=== PATIENT | male | born 1955 | race Caucasian/White ===

== ENCOUNTER 2016-06-06 15:24 | Inpatient (IN) | payer BC ==
[~2016-06-06] VITALS: Ht 175.3 cm; Wt 83.6 kg
[2016-06-11] MEDS ORDERED: CIAL5TAB PO (11:56)
[2016-06-11] MEDS ORDERED: ASPI1TAB69 PO (11:56)
[2016-06-11] MEDS ORDERED: OXYC1TAB36 PO (11:56)
[2016-06-11] MEDS ORDERED: ALPR1TAB3 PO (12:16)
[2016-07-02] MEDS ORDERED: INSULIN HUMAN REGULAR 1,000 UNITS/10 ML VIAL SQ PRN (08:15)
[2016-07-02] MEDS ORDERED: LACTATED RINGER'S 1000 ML IV PRN (08:15)
[2016-07-02] MEDS ORDERED: CHLORHEXIDINE GLUCONATE 2 % 1 PACK (2 CLOTHS) TOPICAL PRN (08:15)
[2016-07-02] MEDS ORDERED: SODIUM CHLORID 0.9% 500 ML IV PRN (08:15)
[2016-07-02] MEDS ORDERED: METOPROLOL TARTRATE 25 MG TAB PO PRN (08:15)
[2016-07-02] MEDS ORDERED: POVIDONE IODINE 7.5% SCRUB 118 ML BOTTLE TOPICAL SCH (08:15)
[2016-07-02] MEDS ORDERED: ceFAZolin 2 GM PREMIX 50 ML IV SCH (08:15)
[2016-07-02] MEDS ORDERED: POVIDONE IODINE 5% (ANTISEPSIS KIT) 4 APPLICATIONS EACH NARE PRN (08:15)
[2016-07-02 08:26] VITALS: BP 108/53; PULSE 72; RESP 20; TEMP 98.2; O2SAT 96
[2016-07-02] MEDS ORDERED: TRANEXAMIC ACID IV SCH ×2 (08:30→11:30)
[2016-07-02] MEDS ORDERED: SODIUM CHLORIDE 0.9% IV SCH ×2 (08:30→11:30)
[2016-07-02] MEDS ORDERED: EXPAREL PERI-ARTICULAR INJECTION (TOTAL VOL. 100 ML) P-ARTICULR SCH ×2 (08:30)
[2016-07-02] MEDS ORDERED: GENTAMICIN SULFATE 80 MG/2 ML VIAL ONE (09:48)
[2016-07-02] MEDS ORDERED: MIDAZOLAM HCL 2 MG/2 ML VIAL ONE ×2 (10:16→15:12)
[2016-07-02] MEDS ORDERED: FAMOTIDINE 20 MG/2 ML VIAL ONE (10:17)
[2016-07-02] MEDS ORDERED: SODIUM CHLORIDE 0.9% FLUSH 5 ML FLUSH IVF PRN (10:45)
[2016-07-02] MEDS ORDERED: ZOLPIDEM TARTRATE 5 MG TAB PO PRN (10:45)
[2016-07-02] MEDS ORDERED: TRANEXAMIC ACID INJ 0 MG in SODIUM CHLORIDE 0.9% INJ 100 ML IV SCH (10:45)
[2016-07-02] MEDS ORDERED: MORPHINE SULFATE 4 MG/ML INJ IV PUSH PRN (10:45)
[2016-07-02] MEDS ORDERED: MAGNESIUM HYDROXIDE SUSP 30 ML CUP PO PRN (10:45)
[2016-07-02] MEDS ORDERED: ACETAMINOPHEN/HYDROcodone 325 MG/7.5 MG TAB PO PRN ×2 (10:45)
[2016-07-02] MEDS ORDERED: ONDANSETRON HCL 4 MG/2 ML VIAL IVP PRN (10:45)
[2016-07-02] MEDS ORDERED: Post-op Orders (for Pharmacy) MISC XX ONE (10:45)
--- NOTE | 2016-07-02 10:53 | HHI.FF ---
Face to Face Verification Diagnosis: (1) Status post total left knee replacement Physical Therapy Gait training Knee: Total knee, Protocol: Left, Gait training, Full weight bearing Left LE Weight Bearing: WB as tolerated Left LE Range of Motion: Active ROM Additional Instructions AROM, AAROM, PROM, PRE. ROM goal 0 to 135 degrees. ROM in the OR was 0 to 140 degrees. Nursing Nursing: Dressing changes Dressing Changes: Daily dressing change, Coverderm/Primapore Additional Instructions Remove steristrips on postop day 14. I have seen patient Andrez Hogue on 07/02/16. My clinical findings support the need for the requested home health care services because: Ltd mobility - disease progression Limited ability to care for self High risk of falls I certify that my clinical findings support that this patient is homebound because: Post-op weakness Unsteady gait/balance Unsafe to leave home unassisted Russell Solis MD (Charles) Jul 02, 2016 10:52
[2016-07-02] MEDS ORDERED: ACETAMINOPHEN 1000 MG/100 ML VIAL IV ONE (10:57)
[2016-07-02] MEDS ORDERED: KETAMINE HCL 500 MG/5 ML VIAL ONE (11:46)
[2016-07-02] MEDS ORDERED: LACTATED RINGER'S 1000 ML INJ 2,000 ML IV ONE (13:52)
[2016-07-02] MEDS ORDERED: PROPOFOL 200 MG/20 ML AMP IV ONE (13:52)
[2016-07-02] MEDS ORDERED: fentaNYL CITRATE 250 MCG/5 ML AMP ONE (15:12)
[2016-07-02] MEDS ORDERED: ceFAZolin INJ 1,000 MG VIAL IV ONE (15:40)
[2016-07-02] MEDS ORDERED: *morphine SULFATE 8 MG/ML PERIprocedure ONLY ONE ×3 (16:14→16:53)
[2016-07-02] MEDS: KETOROLAC TROMETHAMINE 30 MG/ML (IVP) VIAL IVP SCH ×3 (16:30→22:30)
[2016-07-02] MEDS ORDERED: DO NOT ADM ANY ANTICOAGULANT DRUGS PRN (17:15)
[2016-07-02] MEDS: LACTATED RINGER'S 1000 ML INJ 1,000 ML IV SCH ×2 (17:28→22:31)
[2016-07-02] MEDS ORDERED: *HYDROmorphone PF 1 MG VIAL PERIprocedural Use ONLY ONE ×2 (17:47→18:34)
--- NOTE | 2016-07-02 18:24 | RADRPT ---
EXAM DATE/TIME: 07/02/2016 17:54 [place] COMPARISON: No previous studies available for comparison. INDICATIONS : Post op left knee. MEDICAL HISTORY : None. SURGICAL HISTORY : None. ENCOUNTER: Initial ACUITY: 1 day PAIN SCORE: Non-responsive. LOCATION: Left knee FINDINGS: Frontal and lateral views of the left knee demonstrate surgical drain, soft tissue swelling and subcu taneous emphysema about the knee. Patient is status post left total knee arthroplasty. Tibial and fem oral components and patellar components appear well seated. A threaded screw traverses the distal tib ia. CONCLUSION: Postoperative changes. Shahzad Hernandez MD on July 02, 2016 at 18:22 Board Certified Radiologist. This report was verified electronically.
[2016-07-02 19:30] VITALS: BP 142/85; PULSE 81; RESP 18; TEMP 98.4; O2SAT 98
[2016-07-02] MEDS: SODIUM CHLORIDE 0.9% FLUSH 5 ML FLUSH IVF SCH (21:10)
[2016-07-02] MEDS: ALPRAZolam 1 MG TAB PO PRN (21:10)
[2016-07-02] MEDS: oxyCODONE/ACETAMINOPHEN 10 MG/325 MG TAB PO PRN (21:11)
[2016-07-02] MEDS: ASPIRIN EC 81 MG TABEC PO SCH (21:11)
[2016-07-02 21:28] VITALS: O2SAT 94
[2016-07-02 21:40] VITALS: O2SAT 94
[2016-07-03] VITALS: BP 137/76; PULSE 83; RESP 17; TEMP 98.9; O2SAT 96
[2016-07-03] MEDS: oxyCODONE/ACETAMINOPHEN 10 MG/325 MG TAB PO PRN ×3 (01:44→09:52)
[2016-07-03] MEDS: ALPRAZolam 1 MG TAB PO PRN (03:13)
[2016-07-03 04:00] VITALS: BP 141/74; PULSE 81; RESP 17; TEMP 98.6; O2SAT 94
[2016-07-03] MEDS: KETOROLAC TROMETHAMINE 30 MG/ML (IVP) VIAL IVP SCH (05:53)
--- NOTE | 2016-07-03 06:13 | PD.ORT.PN ---
Subjective Post Op Day #: 1 Subjective Remarks He has been OOB walking to the bathroom without difficulty. He reports little pain. He is anxious to return home. Range of Motion -15 to 85 degrees. Distance Walked 10 sidesteps. Objective Vitals Vital Signs Date Time Temp Pulse Resp B/P Pulse Ox O2 Delivery O2 Flow Rate FiO2 07/03/16 04:00 98.6 81 17 141/74 94 07/03/16 04:00 Room Air 07/03/16 00:00 Room Air 07/03/16 00:00 98.9 83 17 137/76 96 07/02/16 21:40 94 21 07/02/16 21:28 94 21 07/02/16 20:26 96 Room Air 07/02/16 20:25 Nasal Cannula 2.00 07/02/16 19:30 98.4 81 18 142/85 98 07/02/16 18:30 98.2 85 16 150/82 94 Nasal Cannula 2 07/02/16 18:00 85 16 157/85 94 Nasal Cannula 2 07/02/16 17:30 88 16 158/94 94 Nasal Cannula 3 07/02/16 17:30 15 07/02/16 17:15 83 16 147/92 94 Nasal Cannula 3 07/02/16 17:00 77 16 156/87 94 Nasal Cannula 3 07/02/16 16:45 76 15 158/93 97 Nasal Cannula 3 07/02/16 16:30 76 15 163/90 97 Nasal Cannula 3 07/02/16 16:15 82 14 177/95 97 Nasal Cannula 3 07/02/16 16:08 98.5 86 15 154/101 97 Nasal Cannula 3 07/02/16 08:26 98.2 72 20 108/53 96 I/O 07/02/16 07/02/16 07/02/16 07/03/16 07/03/16 07/03/16 07:00 15:00 23:00 07:00 15:00 23:00 Intake Total 2721 ml 794 ml Output Total 1095 ml 200 ml Balance 1626 ml 594 ml Intake Oral 240 ml IV Total 481 ml 794 ml Other 2000 ml Output Urine Total 475 ml Drainage Total 170 ml 200 ml Estimated Blood Loss 450 ml # Voids 1 # Bowel Movements 0 Imaging Last 24 hours Impressions Knee X-Ray 07/02/16 1034 Signed Impressions: Service Date/Time: Saturday, July 02, 2016 17:54 - CONCLUSION: Postoperative changes. Shahzad Hernandez MD Objective Remarks He is resting comfortably, supine in bed in the CPM. The dressing is dry and intact. the neurovascular status is intact. Assessment & Plan Ortho Post Op Day #: 1 Problem List: (1) Status post total left knee replacement Plan: Continue postop care and PT. Assessment and Plan Condition: Good. Orthopaedically stable. DVT prophylaxis: TEDs, sequentials, ASA. Discharge plans: Home with [facility]. Rx: Percocet 5/325. Russell Solis MD (Charles) Jul 03, 2016 06:13
[2016-07-03 06:25] LABS: HEMATOCRIT 34.1 % (39.0-51.0); MEAN CELL VOLUME 88.8 FL (80.0-100.0); MEAN CORPUSCULAR HEMOGLOBIN 30.6 PG (27.0-34.0); MEAN CORPUSCULAR HGB CONC 34.5 % (32.0-36.0); PLATELET COUNT 197 TH/MM3 (150-450); RED BLOOD COUNT 3.84 MIL/MM3 (4.50-5.90); RED CELL DISTRIBUTION WIDTH 13.1 % (11.6-17.2); REVIEW FLAG FINAL; WHITE BLOOD COUNT 11.4 TH/MM3 (4.0-11.0)
[2016-07-03] MEDS ORDERED: OXYC1TAB36 PO (06:38)
[2016-07-03 06:42] LABS: BICARBONATE 29.4 MEQ/L (21.0-32.0)
[2016-07-03 07:56] VITALS: O2SAT 97
[2016-07-03 08:00] VITALS: BP 130/79; PULSE 80; RESP 16; TEMP 97.3; O2SAT 96
--- NOTE | 2016-07-03 08:34 | MB ---
cc: WALTER MONTEJO MD DATE OF CONSULTATION 07/02/2016 DATE OF 1955 DATE OF ADMISSION 07/02/2016 REASON FOR CONSULTATION Medical management. The patient is status post left total knee replacement. HISTORY OF PRESENT ILLNESS This is a pleasant 61-year-old white male who has struggled with osteoarthritis and chronic pain in his left knee. He had already had one left knee replacement done and is back for his second one after failing outpatient treatment. The patient is currently in the PACU status post his surgery. He is alert and oriented and a fairly good historian. His fiance is by his side. PAST MEDICAL HISTORY Includes: 1. Osteoarthritis 2. Chronic pain 3. [place] 4. Cardiovascular disease 5. Valvular scarring 6. Anxiety PAST SURGICAL HISTORY 1. Previous left total knee replacement as stated this is his second one. 2. Right hand surgery 3. Prostate surgery 4. Seminal vesicle surgery 5. Back surgery ALLERGIES No known medications. MEDICATIONS 1. P.r.n. antianxiety meds 2. Pain meds 3. Cialis SOCIAL HISTORY The patient is single, engaged, fixing to very same. He lives with his significant other. The patient is a former smoker, quit 10 years ago. He does admit to some marijuana use. Rare social alcohol. REVIEW OF SYSTEMS Positive for chronic pain, osteoarthritis, history of [place] and valvular scarring. Other systems negative or unremarkable. PHYSICAL EXAM VITAL SIGNS: Temperature is 98.2, pulse 88, respirations 16, blood pressure 158/94, O2 sat 94 on three liters nasal cannula. GENERAL: A well-nourished white male who looks to be his stated age resting on a stretcher, answering simple questions, alert and oriented. SKIN: [place], warm and dry. HEENT: Atraumatic, normocephalic. BRANDON at 3. Mucous membranes are slightly dry. Tongue is midline. NECK: Supple. CARDIOVASCULAR: S1-S2. No audible murmurs, rubs or gallops. No edema in his lower extremities. PULMONARY: Essentially clear anteriorly and posteriorly with no wheezes, rales or rhonchi. ABDOMEN: Flat, soft, nontender, nondistended. MUSCULOSKELETAL: Moves all of his extremities with purpose. He has limited movement secondary to his current knee surgery, but he can move his toes and overcomes resistance with his upper extremities. NEUROLOGIC: Awake, alert, oriented. PSYCHOLOGIC: Appropriate mood and affect. Knee x-ray shows postoperative changes and no other labs. ASSESSMENT/PLAN 1. Osteoarthritis, the patient is status post left total knee Replacement. 2. Chronic pain secondary to number one. 3. History of anxiety disorder. 4. History of [place]. 5. History of tobacco use, none now, current marijuana use. Our plan is to monitor any medical issues he has. The patient is not a known diabetic. We will draw labs in the morning and monitor any medical comorbidities as needed. Ortho will manage postop care and pain management. Thank you very much for this consult and we are glad to assist. Dictated by BARRY Manrique MD JAJA Gunderson/ABDIRAHMAN /6:32 PM /8:33 AM PT WAS SEEN & EXAMINED YESTERDAY d/w Ilana truong above post op DVT care per ortho will f/u MTDD
[2016-07-03] MEDS ORDERED: CIALIS 5 MG PO SCH (09:00)
[2016-07-03] MEDS: SODIUM CHLORIDE 0.9% FLUSH 5 ML FLUSH IVF SCH (09:00)
[2016-07-03] MEDS ORDERED: NON-FORMULARY DRUG (Tadalafil (Cialis) 5 MG) PO SCH (09:00)
[2016-07-03] MEDS: ASPIRIN EC 81 MG TABEC PO SCH (09:51)
[2016-07-03] MEDS ORDERED: DOCUSATE SODIUM 100 MG CAP PO SCH (21:00)
--- NOTE | 2016-07-03 22:33 | MP ---
cc: Leeroy SALES. DATE OF SURGERY: 07/02/2016 PREOPERATIVE DIAGNOSIS: Prior anterior cruciate ligament reconstruction with post traumatic arthritis. POSTOPERATIVE DIAGNOSIS: Prior anterior cruciate ligament reconstruction with retained hardware, extensive fibrosis and post traumatic osteoarthritis, left knee. OPERATION PERFORMED Left total knee arthroplasty with [employer] Triathlon prosthesis (uncemented) with removal of retained hardware ([place] screw tibia) and resection fibrosis, left knee. SURGEON Alfredo Sales MD FOREIGN TRADE TEACHER: Rolly Leo CSFA ANESTHESIA: Spinal with supplemental adductor canal block and local. INDICATIONS AND FINDINGS: This 61-year-old man has had longstanding arthritis in his left knee subsequent to an anterior cruciate ligament reconstruction in [place] in 1999. He has had stiffness and pain and difficulty with ambulation with ability to walk about 10 feet before having to stop because of pain. He has treated this with analgesics, anti-inflammatory agents, activity modification, ambulatory aids, exercise and weight loss. He has continued to have pain in the knee and this has limited his ability to work. He is now coming for total knee arthroplasty. Physical findings showed a well-healed surgical scar on the anterior aspect of the knee with the range being 0 degrees extension to 95 degrees of flexion. He has some mild laxity with soft tissue tightness about the knee. There are palpable osteophytes. X-rays shows marked irregularity in both medial and lateral compartments as well as the patella femoral compartment with tricompartmental osteophytes and loose bodies. There is some cystic formation about the [place] screw in the tibia. The femur appeared to be stable. Operative findings showed severe tricompartmental osteoarthritis with evidence of a prior anterior cruciate ligament reconstruction. There is a K[place] screw easily found in t he tibia but that and the femur was buried. There was extensive fibrosis at the time of the procedure. Under anesthesia his range of motion was 95 degrees as noted above. There was a large cyst that was subchondral at the site of the anterior cruciate ligament graft. The prosthesis used is a [place] Triathlon prosthesis. The femoral component was a size 5 cruciate retaining, porous coated. The tibial component was a Tritanium baseplate size 6 with a 9 millimeter cruciate retaining spacer of X3 polyethylene. The patella was an asymmetric Tritanium backed uncemented patella size 38, asymmetric. PROCEDURE: The patient was brought to the operating room and an adductor canal block was carried out followed by a spinal anesthetic. He was placed in a supine position on the operating table with a small bolster under the left hip, and a pneumatic tourniquet about the left thigh. The left leg was then prepped with alcohol, Hibiclens and Chloraprep and draped in the usual manner with the knee draped free. An appropriate time-out procedure was carried out. The incision was marked and local anesthetic administered into the incision site. Incision was then made from about three fingerbreadths above the superior medial pole of the patella down to the medial side of the tibial tubercle. This was incorporating his prior incisional scar. The incision was deepened through the subcutaneous tissues to the retinacular structures which were exposed medially and laterally. Some fibrosis was noted initially in the prior perioperative area. . The retinacular incision was then made from the superior medial pole of the patella down to the tibial tubercle up into the quadriceps tendon splitting it longitudinally in the medial one-third. Extensive fibrosis was identified in the suprapatellar pouch, medial and lateral gutters. During the procedure large portions of this were excised allowing for improvement in motion. This did interfere with the procedure in general. The posterior surface of the patella was excised using an oscillating saw. The patella protector was applied. The infrapatellar fat pad with its fibrosis was debulked. The cyclops lesion in the anterior aspect of the knee was debrided. The anterior cruciate ligament remnants were removed. Osteophytes were trimmed from the intercondylar notch. A fenestration was made in the distal femur and proximal tibial for intramedullary referencing guides. The distal femoral cutting guide and jig were assembled for 5 degree 8-mm cut. When this was stabilized the distal femoral cut was made with the oscillating saw taking care to prevent injury to associated structures. The sizing guide was positioned. This identified the size as being a size 5 left femoral component. The four-in-one cutting block was then positioned in place and pinned. Anterior and posterior cuts were made followed by posterior and anterior chamfer cuts. The remainder of the osteophytes were trimmed from about the knee. Extensive osteophytes were identified in the popliteal area. The tibial cutting guide was then positioned in place and the proximal tibial cut was made referencing off of the low side to take 2 millimeters. This did not bring the cut to the appropriate site, therefore an additional 4 mm was resected. It brought this to an adequate position. The spacer block with this did not show an adequate cut, therefore, an additional cut was made to remove slightly more bone. A trial reduction was then carried out with the trial implants. This showed that there was extensive tightness in the posterior aspect of the knee. Further osteophytes were trimmed from the posterior aspect. The extramedullary referencing guide was then positioned in place and a slightly greater posterior slope was placed into the tibia to conform with his preoperative findings. The secondary cut was then made. The size 6 tibial baseplate trial was positioned in place with a 9 millimeter spacer. The femoral component was impacted into place. The patella drill holes were made for the 38 millimeter patella. The patella trial was placed. With the tibia pinned for appropriate rotation, the knee range was checked and found to be 0 degrees extension to 140 degrees of flexion with excellent stability and flexion extension. The femoral drill holes were made. The femoral and patella trials were removed. The fenestration in the tibia and the cyst in the tibia were then grafted with cancellous bone graft using an impaction grafting technique. The tibial punch was then impacted through this. When this was removed, the tibial drill guide was positioned and drill holes made. The cut ends of bone were cleaned with pulse lavage leaving the drill guide in position. The drill guide was then removed and the tibial base plate impacted into place and seated appropriately. This captured the graft very well. The femoral component was then impacted into place. Patella component was then positioned in place as well. The spacer had been placed before placing the femur. With the implants in place drains were brought out the superior and lateral aspect of the suprapatellar pouch. The remainder of Exparel was injected throughout the knee throughout the procedure. The capsular structures were repaired with 0 Vicryl interrupted [id number] sutures. Subcutaneous tissues was closed with 2-0 Vicryl interrupted simple sutures with buried knots. The skin was closed with continuous subcuticular closure of 4-0 Monocryl. The wound was then dressed with Steri-Strips followed by dry dressing, sterile Sof-Rol, cooling pad, further sterile Sof-Rol and Sharif bandage from the base of the toes to midthigh. The patient was transferred from the operating room to the recovery room in satisfactory condition having tolerated the procedure well. Counts were correct. Specimens none. Estimated blood loss 450 mL. MD HIEN Priest/ODALIS /3:54 PM /10:08 PM
== END 2016-07-03 11:45 | disposition home health service (06) | DRG 470 ==
LOC: EDUNIT# 06-21 07:00 → HSDI 07-02 07:31 → N06A 07-02 19:09
PROVIDERS: ADMIT Orthopaedic Surgery; ATTEND Orthopaedic Surgery
PROC: 0QPH04Z Removal of Internal Fixation Device from Left Tibia, Open Approach (ICD-10-PCS; 2016-07-02)
PROC: 3E0T3CZ (ICD-10-PCS; 2016-07-02)
PROC: 0SRD0JA Replacement of Left Knee Joint with Synthetic Substitute, Uncemented, Open Approach (ICD-10-PCS; principal; 2016-07-02 11:20)
DX: M17.32 Unilateral post-traumatic osteoarthritis, left knee (principal); F41.9 Anxiety disorder, unspecified; G89.29 Other chronic pain; I25.10 Atherosclerotic heart disease of native coronary artery without angina pectoris; Z87.891 Personal history of nicotine dependence; I25.2 Old myocardial infarction
CPT/HCPCS: 73560; 76937; 80048; 85027; 86850; 86900; 86901; 94150; C1776; C9290; J0131; J0690; J1170; J1580; J1885; J2250; J2270; J2405; J3010; J7120

== ENCOUNTER → 2016-06-11 | Outpatient (CLI) | payer BC ==
[~2016-06-11] MED LIST: ALPR1TAB3 PO; ASPI1TAB69 PO; CIAL5TAB PO; OXYC1TAB36 PO
--- NOTE | 2016-06-12 10:30 | EKG ---
Date Performed: 06/11/2016 Time Performed: 11:49:30 PTAGE: 61 years EKG: Sinus rhythm POSSIBLE INFERIOR MYOCARDIAL INFARCTION, PROBABLY OLD BORDERLINE ECG NO PREVIOUS TRACING DOCTOR: Autumn Leo Interpretating Date/Time 06/12/2016 10:25:49
== END ==
LOC: CPRE 11:26
PROVIDERS: ATTEND Orthopaedic Surgery
DX: Z01.810 Encounter for preprocedural cardiovascular examination (principal); M17.12 Unilateral primary osteoarthritis, left knee; M79.609 Pain in unspecified limb
CPT/HCPCS: 93005